=== PATIENT | female | born 1960 ===

== ENCOUNTER 2025-04-10 13:45 | Emergency (ER) | payer BC, MEDICARE, OTHER ==
[2025-04-10] MEDS: Ondansetron 4 MG Tab.DIS PO ONE (14:59)
[2025-04-10] MEDS: Meclizine 25 MG Tab PO ONE ×2 (14:59→16:10)
[2025-04-10 18:50] VITALS: BP 129/68; PULSE 61
== END 2025-04-10 16:08 | disposition home or self-care (01) ==
LOC: JD.ED 13:45
DX: R42 Dizziness and giddiness (principal); I10 Essential (primary) hypertension; E66.9 Obesity, unspecified; Z68.34 Body mass index [BMI] 34.0-34.9, adult; Z79.899 Other long term (current) drug therapy
CPT/HCPCS: 99283; A9270; 99284